=== PATIENT | female | born 1970 | race Caucasian/White ===

== ENCOUNTER → 2018-05-06 09:56 | Outpatient (CLI) | payer SELFPAY ==
[2018-05-07 10:31] LABS: Absolute Lymphocyte Count 1.56 X10^3/ul (0.83-4.51); Basophil# 0.05 X10^3/uL; Basophil% 0.8 % (0-1); Differential Indicated SCAN CRITERIA MET; Eosinophil# 0.35 X10^3/uL; Eosinophils% 5.3 % (0-5); Hematocrit 30.1 % (37-47); Lymphocyte # 1.56 X10^3/ul (4.0); Lymphocyte % 23.8 % (19-41); Mean Corp Hgb Conc 29.9 g/gl (32-36); Mean Corpuscular Hgb 19.6 pg (27.0-32.0); Mean Corpuscular Volume 65.6 fL (81-99); Mean Platelet Vol. 10.5 fl (6.2-12.0); Monocyte# 0.57 X10^3/uL; Monocyte% 8.7 % (0-10); Neutrophil # 3.99 X10^3/uL (2.7-7.7); Neutrophil % 60.9 % (47-70); POSITIVE COUNT NO; POSITIVE DIFFERENTIAL NO; POSITIVE MORPHOLOGY YES; Platelet Count 425 K/mm3 (150-450); RBC Distribution Width CV 20.7 % (11.6-14.6); Red Blood Count 4.59 M/mm3 (4.2-5.4); White Blood Count 6.6 K/mm3 (4.4-11.0)
[2018-05-07 10:58] LABS: Anisocytosis 2+; Hypochromasia 2+; Microcytosis 2+; Platelet Estimate ADEQUATE (ADEQ); Polychromasia RARE; Target Cells RARE
== END ==
PROVIDERS: Referring Provider Nurse Practitioner; Visit Provider Nurse Practitioner
DX: E03.9 Hypothyroidism, unspecified (principal); D64.9 Anemia, unspecified
CPT/HCPCS: 84443; 85025